=== PATIENT | male | born 1995 | race Hispanic/Latino ===

== ENCOUNTER 2024-07-16 21:18 | Emergency (ER) | payer SELFPAY ==
[2024-07-16] VITALS (8 sets, daily range): BP systolic 107–121; BP diastolic 73–99; PULSE 91–110; RESP 12–28; TEMP 36.4; O2SAT 95–100
--- NOTE | ~2024-07-16 | CT_ITS ---
EXAMINATION: CT cervical spine wo con DATE: 07/16/2024 21:49 INDICATION: Neck trauma TECHNIQUE: Computed tomography (CT) of the cervical spine was performed without intravenous contrast. Automated exposure control and iterative reconstruction technique were employed. The dose-length pro duct was 393.01 mGy-cm. COMPARISON: None FINDINGS: 5 degrees cervical levocurvature. Sagittal alignment is normal. Vertebral body and disc heights are n ormal. No fracture. 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 Minimal osteoar thritis remaining facet and uncovertebral joints. No central canal or neural foraminal stenosis. Cerv ical soft tissues are unremarkable. Visualized apices of lungs are clear. IMPRESSION: 1. 5 degrees cervical levocurvature with negligible degenerative changes and no acute osseous abnorma lity. Reviewed, dictated and finalized at location A. IMPRESSION: 1. 5 degrees cervical levocurvature with negligible degenerative changes and no acute osseous abnormality.
--- NOTE | ~2024-07-16 | CT_ITS ---
EXAMINATION: CT brain wo con DATE: 07/16/2024 21:49 INDICATION: Head trauma TECHNIQUE: Computed tomography (CT) of the head was performed without intravenous contrast. Sagittal and coronal reconstructions were performed. The mA was adjusted according to patient size. Iterative reconstruction technique was employed. The dose-length product was 605.33 mGy-cm. COMPARISON: None FINDINGS: No fracture. No acute intracranial hemorrhage, acute infarction or abnormal extra axial fluid collect ion. Ventricles are normal and symmetric. No mass/mass effect. The orbits, paranasal sinuses and mast oid air cells are normal. IMPRESSION: 1. Normal brain. No fracture or acute intracranial process. Reviewed, dictated and finalized at location A.
[2024-07-16] MEDS: levETIRAcetam 1500MG/NACL100ML 1,500 MG/100 ML BAG 400 MG IVPB (21:32)
[2024-07-16] MEDS: ONDANSETRON INJ 4 MG/2 ML VIAL IV PUSH (21:32)
[2024-07-16] MEDS: SODIUM CHLORIDE 0.9% IV 1,000 ML 999 ML IV CONT (21:32)
[2024-07-16] MEDS: ACETAMINOPHEN 500 MG TABLET 1000 MG PO (21:33)
[2024-07-16 21:42] LABS: Basophils Absolute Auto 0.1 K/mm3 (0.0-0.1); Basophils Percent Auto 0.4 % (0.2-1.2); Eosinophils Absolute Auto 0.1 K/mm3 (0-0.3); Eosinophils Percent Auto 0.3 % (0-4.4); Hematocrit 47.1 % (42.0-52.0); Hemoglobin 16.1 g/dL (14.0-18.0); Immature Granulocyte Absolute 0.08 K/mm3 (0.00-0.031); Immature Granulocyte Percent A 0.5 % (0-0.5); Lymphocytes Absolute Auto 1.89 K/mm3 (0.9-3.2); Lymphocytes Percent Auto 12.7 % (18.3-44.2); Mean Corpuscular HGB Conc 34.2 g/dl (32-36); Mean Corpuscular Hemoglobin 30.6 pg (26-34); Mean Corpuscular Volume 89.5 fl (80-100); Mean Platelet Volume 10.1 fl (7.4-10.4); Monocytes Absolute Auto 0.7 K/mm3 (0.1-0.6); Neutrophils Percent Auto 81.1 % (45.5-73.1); Platelet Count Result 308 k/mm3 (150-375); Red Blood Count 5.26 M/mm3 (4.6-6.20); Red Cell Distribution Width 12.3 % (11.5-14.5); White Blood Count 14.8 K/mm3 (4.5-10.0)
--- NOTE | 2024-07-16 21:42 | ED.SEIZURE ---
HPI - Seizure General Chief Complaint: Seizure <Corey Gann MD - Last Filed: 07/16/24 21:49> Stated Complaint: SZ X 2 WITNESSED TONIC CLONIC <Corey Gann MD - Last Filed: 07/16/24 21:49> Time Seen by Provider: 07/16/24 22:09 <Corey Gann MD - Last Filed: 07/16/24 21:49> Source: patient and EMS <Corey Gann MD - Last Filed: 07/16/24 21:49> Mode of arrival: EMS <Corey Gann MD - Last Filed: 07/16/24 21:49> Limitations: no limitations <Corey Gann MD - Last Filed: 07/16/24 21:49> History of Present Illness HPI Narrative: This is a 29-year-old male, with history of seizure disorder, brought in by EMS after having 3 seizures today. The patient states he was in his usual state of health and has been taking his medications. He states he had a seizure at 19:00 a this evening, followed by 2 more at approximately 19:40 and 20:00. He states he believes he hit his head with the last seizure. He complains of throbbing, moderate headache and mild midline neck pain. He has no other complaints at this time. EMS reports friends at the scene witnessed the patient seizures. On arrival, the patient was a and O x2 in postictal. He returns to baseline mentation in transport. He was not given any medications and around. Vital signs are remarkable for tachycardia. <Corey Gann MD - Last Filed: 07/16/24 21:49> Related Data Allergies/Adverse Reactions: Allergies Allergy/AdvReac Type Severity Reaction Status Date / Time No Known Allergies Allergy Verified 07/16/24 21:31 <Corey Gann MD - Last Filed: 07/16/24 21:49> Review of Systems Review of Systems: All systems reviewed & are unremarkable except as noted in HPI and below <Corey Gann MD - Last Filed: 07/16/24 21:49> PMFSH Past Medical History Medical History: Medical History Seizure <Corey Gann MD - Last Filed: 07/16/24 21:49> Surgical History Surgical History: Surgical History No significant past surgical history <Corey Gann MD - Last Filed: 07/16/24 21:49> Social History Social History: Social History (Updated 07/16/24 @ 21:44 by Corey Gann MD) Smoking status: Never smoker Alcohol intake: never Substance use: never <Corey Gann MD - Last Filed: 07/16/24 21:49> Exam Narrative: GENERAL: Well-developed, well-nourished, and in no acute distress. HEAD: Normocephalic, atraumatic. EYES: PERRLA and EOMI. ENT: Nares clear, no rhinorrhea or epistaxis. Mucous membranes moist. Oropharynx without tonsillar hypertrophy exudate or other lesions. There is a lesion on the right side of the tongue, consistent with tongue biting NECK: Supple. Mild midline spine tenderness to palpation at approximately see to without step-off or crepitus. CHEST: Clear to auscultation. No respiratory distress. No wheezes rales or rhonchi HEART: Regular rate and rhythm. No murmur heard. Normal peripheral pulses. ABDOMEN: Soft, nontender, nondistended, normal active bowel sounds. EXTREMITIES: Normal range of motion. No edema. SKIN: Warm, dry, no rash. NEURO: Alert and oriented x3. No focal deficit. Moving all 4 limbs spontaneously PSYCH: Normal mood and affect. <Corey Gann MD - Last Filed: 07/16/24 21:49> Course Course Emergency Course: 22:00 - Patient signed out to overnight ED physician, Dr. Crespo pending labs and imaging results. My review of the patient's CT head not concerning for intracranial hemorrhage. <Corey Gann MD - Last Filed: 07/16/24 21:49> Vital Signs Vital signs: Vital Signs Temperature 97.6 F 07/16/24 21:18 Pulse Rate 99 07/16/24 21:18 Respiratory Rate 18 07/16/24 21:18 Blood Pressure 121/76 07/16/24 21:18 Pulse Oximetry 97 07/16/24 21:18 Oxygen Del
[2024-07-16 21:59] LABS: Albumin Level 5.3 g/dL (3.5-5.1); Alkaline Phosphatase 80 U/L (38-126); Anion Gap 22 mmol/L (4-12); Aspartate Amino Transferase 29 U/L (17-59); Bilirubin,Total 0.2 mg/dL (0.2-1.3); Blood Urea Nitrogen 12 mg/dL (9-20); Calcium 8.7 mg/dL (8.4-10.2); Carbon Dioxide 14 mmol/L (22-30); Chloride 102 mmol/L (98-107); Estimated CRCL calculation 91 ml/min; Estimated Glomerular Filt Rate > 60; Glucose 144 mg/dL (65-110); Potassium 3.8 mmol/L (3.4-5.0); Sodium 138 mmol/L (137-145)
[2024-07-16 22:03] LABS: Alanine Aminotransferase 26 U/L (6-50)
[2024-07-16 22:38] LABS: Add Urine Microscopic? YES; Appearance Urine Cloudy (Clear); Bacteria Urine None Seen /hpf; Bilirubin Urine Negative (Negative); Blood Urine Trace (Negative); Color Urine Yellow (Yellow); Glucose Urine UA Negative (Negative); Ketones Urine Trace mg/dL (Negative); Leukocyte Esterase Ur Negative LEU/UL (Negative); Nitrate Urine Negative (Negative); Protein Urine Trace mg/dL (Negative); RBC Urine 0-2 /hpf (0-2); Specific Grav Ur 1.017 (1.001-1.035); Squamous Epithelial Cell Urine None Seen /hpf (Few); Urobilinogen Urine 0.2 mg/dL (<2.0); WBC Urine 0-5 /hpf (0-3)
[2024-07-16] MEDS: KETOROLAC 15 MG/ML VIAL (*BKC) IV PUSH (22:56)
== END 2024-07-16 23:01 | disposition home or self-care (01) ==
LOC: ANHED 22:56
PROVIDERS: Preventive Medicine Aerospace Medicine; Emergency Provider Emergency Medicine
DX: G40.909 Epilepsy, unspecified, not intractable, without status epilepticus (principal)
CPT/HCPCS: 36415; 70450; 72125; 80053; 81001; 85025; 96361; 96374; 96375; 99284; A9270; J1885; J1953; J2405; J7030